=== PATIENT | male | born 1955 | race Caucasian/White ===

== ENCOUNTER 2019-06-27 13:52 | Inpatient (IN) | payer MEDICARE, MEDICAID ==
[~2019-06-27] VITALS: Ht 172.7 cm; Wt 69.9 kg
[~2019-06-27 13:52] MED LIST: AMLO5TAB4 PO; ATEN-177 PO; FOLI0.8T23 PO; INSU100I7 SQ; SEVE800T8 PO
[2019-06-27 14:47] LABS: CHLORIDE 97 mEq/L (98-107)
[2019-06-27 14:48] LABS: BASOPHILS % 1.1 % (0.0-2.0); EOSINOPHILS % 2.1 % (0.0-5.0); HEMATOCRIT. 32.9 % (42.0-52.0); HEMOGLOBIN. 11.1 g/dL (14.0-18.0); LYMPHOCYTES % 22.9 % (20.0-50.0); MEAN CORPUSCULAR HEMOGLOBIN 30.1 pg (28.0-32.0); MEAN CORPUSCULAR VOLUME 89.1 fL (80.0-94.0); MEAN PLATELET VOLUME 7.1 fl (7.4-10.4); MONOCYTES % 7.3 % (2.0-8.0); NEUTROPHILS % 66.6 % (40.0-76.0); PLATELET 268 x1000/uL (130-400); RED BLOOD CELL COUNT 3.69 mill/uL (4.7-6.1); RED CELL DISTRIBUTION WIDTH 14.9 % (11.6-14.6)
[2019-06-27 14:57] LABS: BETA HYDROXYBUTYRATE 0.3 mMol/L (0.0-0.3)
[2019-06-27] MEDS ORDERED: ACETAMINOPHEN 650MG/20.3ML UDC PO PRN (17:15)
[2019-06-27] MEDS ORDERED: ACETAMINOPHEN 325MG TABLET PO PRN (18:30)
[2019-06-27] MEDS ORDERED: ONDANSETRON HCL 4MG/2ML INJ IV PRN (18:30)
[2019-06-27] MEDS ORDERED: LEVOFLOXACIN 500MG PREMIX 100 ML IV SCH (19:00)
[2019-06-27] MEDS ORDERED: TRAZODONE HCL 50MG TABLET PO SCH (21:00)
[2019-06-27] MEDS: AMLODIPINE 5MG TABLET PO SCH (21:14)
[2019-06-28] MEDS: HYDROCODONE/ACETAMINOPHEN 5/325MG TABLET PO PRN ×2 (03:39→08:48)
[2019-06-28 05:09] LABS: CHLORIDE 95 mEq/L (98-107)
[2019-06-28 06:06] LABS: BASOPHILS % 1.2 % (0.0-2.0); EOSINOPHILS % 2.5 % (0.0-5.0); HEMATOCRIT. 30.3 % (42.0-52.0); HEMOGLOBIN. 10.5 g/dL (14.0-18.0); LYMPHOCYTES % 26.4 % (20.0-50.0); MEAN CORPUSCULAR HEMOGLOBIN 30.4 pg (28.0-32.0); MEAN CORPUSCULAR VOLUME 88.1 fL (80.0-94.0); MEAN PLATELET VOLUME 6.8 fl (7.4-10.4); MONOCYTES % 8.5 % (2.0-8.0); NEUTROPHILS % 61.4 % (40.0-76.0); PLATELET 238 x1000/uL (130-400); RED BLOOD CELL COUNT 3.44 mill/uL (4.7-6.1); RED CELL DISTRIBUTION WIDTH 14.8 % (11.6-14.6)
[2019-06-28 06:30] VITALS: BP 154/84
[2019-06-28 07:30] VITALS: BP 164/65
[2019-06-28 08:00] VITALS: BP 164/55
[2019-06-28] MEDS: AMLODIPINE 5MG TABLET PO SCH (08:47)
[2019-06-28] MEDS ORDERED: ASPIRIN 81MG TABLET PO SCH (09:00)
[2019-06-28] MEDS ORDERED: ENOXAPARIN 30MG/0.3ML SYR SUBCUT SCH (09:00)
[2019-06-28 12:00] VITALS: BP 135/70
[2019-06-28 15:39] VITALS: BP 157/84
[2019-06-28 16:00] VITALS: BP 153/84
[2019-06-28] MEDS ORDERED: LEVOFLOXACIN 500MG PREMIX 100 ML IV SCH (20:00)
[2019-06-29] MEDS ORDERED: LEVOFLOXACIN 250MG PREMIX 50 ML IV SCH (11:00)
== END 2019-06-28 18:23 | disposition home or self-care (01) | DRG 637 ==
LOC: ER 14:05 → EDBEDREQTM 16:18 → EDBEDREQ 16:18 → ENRESERV 06-28 05:11 → 6WST 06-28 06:16 → UNDODISIN 06-28 17:05
PROVIDERS: ADMIT Internal Medicine; ATTEND Internal Medicine
DX: E11.649 Type 2 diabetes mellitus with hypoglycemia without coma (principal); G93.41 Metabolic encephalopathy; I13.2 Hypertensive heart and chronic kidney disease with heart failure and with stage 5 chronic kidney disease, or end stage renal disease; E87.1 Hypo-osmolality and hyponatremia; E44.1 Mild protein-calorie malnutrition; E87.3 Alkalosis; I43 Cardiomyopathy in diseases classified elsewhere; E11.22 Type 2 diabetes mellitus with diabetic chronic kidney disease; I25.10 Atherosclerotic heart disease of native coronary artery without angina pectoris; E87.8 Other disorders of electrolyte and fluid balance, not elsewhere classified; D63.1 Anemia in chronic kidney disease; I50.9 Heart failure, unspecified; N18.6 End stage renal disease; E86.0 Dehydration; B99.9 Unspecified infectious disease; Z68.23 Body mass index [BMI] 23.0-23.9, adult; Z99.2 Dependence on renal dialysis; Z91.19 Patient's noncompliance with other medical treatment and regimen; Z95.1 Presence of aortocoronary bypass graft; Z89.511 Acquired absence of right leg below knee; Z89.512 Acquired absence of left leg below knee
CPT/HCPCS: 36415; 71045; 80048; 80053; 80061; 82010; 82962; 83036; 83605; 83735; 83880; 84145; 84443; 84484; 85025; 85651; 93005; 96365; 99285; J1650; J1956

== ENCOUNTER 2019-07-30 07:02 | Inpatient (IN) | payer MEDICARE, MEDICAID ==
[~2019-07-30] VITALS: Ht 165.1 cm; Wt 75.3 kg
[~2019-07-30 07:02] MED LIST changes: -INSU100I7 SQ
[2019-07-30 08:02] LABS: BASOPHILS % 0.8 % (0.0-2.0); EOSINOPHILS % 1.6 % (0.0-5.0); HEMATOCRIT. 36.3 % (42.0-52.0); HEMOGLOBIN. 12.2 g/dL (14.0-18.0); LYMPHOCYTES % 20.1 % (20.0-50.0); MEAN CORPUSCULAR HEMOGLOBIN 29.6 pg (28.0-32.0); MEAN CORPUSCULAR VOLUME 88.4 fL (80.0-94.0); MEAN PLATELET VOLUME 6.7 fl (7.4-10.4); NEUTROPHILS % 70.5 % (40.0-76.0); PLATELET 152 x1000/uL (130-400); RED BLOOD CELL COUNT 4.11 mill/uL (4.7-6.1); RED CELL DISTRIBUTION WIDTH 15.8 % (11.6-14.6)
[2019-07-30 08:08] LABS: CHLORIDE 96 mEq/L (98-107)
[2019-07-30 08:09] LABS: PROTHROMBIN TIME 10.7 sec (9.6-11.0)
[2019-07-30] MEDS ORDERED: DEXTROSE 50% WATER 50ML SYRINGE IV ONE ×2 (08:57→09:00)
[2019-07-30] MEDS ORDERED: ALBUTEROL 6.7GM HFA INHALER ORI ONE (09:00)
[2019-07-30] MEDS ORDERED: PIPERACILLIN/TAZ 3.375G PREMIX 50 ML IV ONE (11:30)
[2019-07-30] MEDS ORDERED: VANCOMYCIN 1 G PREMIX 200 ML IV ONE (11:30)
[2019-07-30 13:00] VITALS: BP 168/88
[2019-07-30] MEDS ORDERED: ACETAMINOPHEN 325MG TABLET PO PRN (13:30)
[2019-07-30] MEDS ORDERED: IPRATROPIUM/ALBUTEROL 0.5-3(2.5)MG/3ML NEB HHN PRN (13:30)
[2019-07-30] MEDS ORDERED: PIPERACILLIN/TAZOBACTAM 3.375 G in DEXT 5% WATER 100 ML IV SCH (13:30)
[2019-07-30] MEDS ORDERED: LABETALOL 5MG/ML SYR 20 MG/4 ML SYRINGE IV NR (13:30)
[2019-07-30] MEDS ORDERED: ONDANSETRON HCL 4MG/2ML INJ IV PRN (13:30)
[2019-07-30 13:48] VITALS: BP 168/86
[2019-07-30] MEDS ORDERED: CLONIDINE 0.1MG TABLET PO PRN (14:45)
[2019-07-30] MEDS: ENOXAPARIN 30MG/0.3ML SYR SUBCUT SCH (15:37)
[2019-07-30 16:29] VITALS: BP 172/130
[2019-07-30] MEDS ORDERED: HYDRALAZINE 20MG/ML VIAL IV NR (16:30)
[2019-07-30] MEDS ORDERED: LEVETIRACETAM 500 MG in SODIUM CHLORIDE 0.9% 100 ML IV SCH (16:30)
[2019-07-30] MEDS: LOSARTAN POTASSIUM 50 MG TABLET PO SCH (16:45)
[2019-07-30] MEDS ORDERED: LORAZEPAM 2MG/ML CPJ IV PRN (17:15)
[2019-07-30] MEDS: PIPERACILLIN/TAZOBACTAM 2.25 G in DEXTROSE 5% WATER 50 ML IV SCH (17:42)
[2019-07-30] MEDS: ENALAPRIL 2.5MG/2ML VIAL 2ML IV SCH ×2 (17:43→23:56)
[2019-07-30] MEDS ORDERED: DEXTROSE 50% WATER 50ML SYRINGE IV PRN (19:30)
[2019-07-30 20:08] VITALS: BP 153/97
[2019-07-30] MEDS: LEVETIRACETAM 500MG PREMIX 100 ML IV SCH (20:22)
[2019-07-30] MEDS: BLOOD SUGAR DIAGNOSTIC STRIP TEST SCH (20:31)
[2019-07-30] MEDS: AMLODIPINE 5MG TABLET PO SCH (20:31)
[2019-07-31] VITALS (7 sets, daily range): BP systolic 106–179; BP diastolic 56–105
[2019-07-31] MEDS: PIPERACILLIN/TAZOBACTAM 2.25 G in DEXTROSE 5% WATER 50 ML IV SCH ×2 (04:29→19:42)
[2019-07-31] MEDS: ENALAPRIL 2.5MG/2ML VIAL 2ML IV SCH ×4 (05:32→23:29)
[2019-07-31] MEDS: BLOOD SUGAR DIAGNOSTIC STRIP TEST SCH ×4 (05:32→20:56)
[2019-07-31] MEDS: AMLODIPINE 5MG TABLET PO SCH ×2 (09:00→21:00)
[2019-07-31] MEDS: LOSARTAN POTASSIUM 50 MG TABLET PO SCH (09:00)
[2019-07-31] MEDS: LEVETIRACETAM 500MG PREMIX 100 ML IV SCH ×2 (09:51→22:05)
[2019-07-31 11:56] LABS: HEMATOCRIT. 34.5 % (42.0-52.0); HEMOGLOBIN. 11.5 g/dL (14.0-18.0); MEAN CORPUSCULAR HEMOGLOBIN 29.2 pg (28.0-32.0); MEAN CORPUSCULAR VOLUME 87.9 fL (80.0-94.0); MEAN PLATELET VOLUME 7.5 fl (7.4-10.4); PLATELET 152 x1000/uL (130-400); RED BLOOD CELL COUNT 3.93 mill/uL (4.7-6.1); RED CELL DISTRIBUTION WIDTH 16.2 % (11.6-14.6)
[2019-07-31] MEDS: ATENOLOL 50 MG TABLET PO SCH (12:00)
[2019-07-31 14:24] LABS: PLATELET ESTIMATE NORMAL
[2019-07-31] MEDS: ENOXAPARIN 30MG/0.3ML SYR SUBCUT SCH (17:50)
[2019-07-31] MEDS: ATORVASTATIN CALCIUM 20MG TABLET PO SCH (21:39)
[2019-08-01] MEDS: ENALAPRIL 2.5MG/2ML VIAL 2ML IV SCH ×4 (00:16→17:50)
[2019-08-01 04:22] VITALS: BP 120/70
[2019-08-01 04:50] VITALS: BP 169/100
[2019-08-01] MEDS: BLOOD SUGAR DIAGNOSTIC STRIP TEST SCH ×4 (05:31→21:07)
[2019-08-01] MEDS: PIPERACILLIN/TAZOBACTAM 2.25 G in DEXTROSE 5% WATER 50 ML IV SCH ×2 (05:38→17:50)
[2019-08-01] MEDS: HYDRALAZINE 20MG/ML VIAL IV PRN ×2 (08:43→21:12)
[2019-08-01] MEDS: CLOPIDOGREL 75MG TABLET PO SCH (08:43)
[2019-08-01] MEDS: LOSARTAN POTASSIUM 50 MG TABLET PO SCH (08:43)
[2019-08-01] MEDS: FOLIC ACID/VITAMIN B COMP W-C TABLET PO SCH (08:43)
[2019-08-01] MEDS: AMLODIPINE 5MG TABLET PO SCH ×2 (08:44→21:07)
[2019-08-01] MEDS: ATENOLOL 50 MG TABLET PO SCH (08:44)
[2019-08-01] MEDS: LEVETIRACETAM 500MG PREMIX 100 ML IV SCH ×2 (08:45→21:06)
[2019-08-01 12:00] VITALS: BP 159/89
[2019-08-01] MEDS: ENOXAPARIN 30MG/0.3ML SYR SUBCUT SCH (15:18)
[2019-08-01 16:00] VITALS: BP 164/85
[2019-08-01] MEDS ORDERED: DEXTROSE 50% WATER 50ML SYRINGE IV PRN (19:15)
[2019-08-01 20:00] VITALS: BP 201/46
[2019-08-01] MEDS: ATORVASTATIN CALCIUM 20MG TABLET PO SCH (21:07)
[2019-08-01] MEDS: INSULIN LISPRO 100 UNITS/ML SUBCUT SCH (21:13)
[2019-08-02] VITALS: BP 161/43
[2019-08-02] MEDS: ENALAPRIL 2.5MG/2ML VIAL 2ML IV SCH ×4 (00:37→17:42)
[2019-08-02 03:00] VITALS: BP 148/43
[2019-08-02 04:00] VITALS: BP 135/25
[2019-08-02] MEDS: PIPERACILLIN/TAZOBACTAM 2.25 G in DEXTROSE 5% WATER 50 ML IV SCH ×2 (06:12→18:09)
[2019-08-02 08:00] VITALS: BP 180/68
[2019-08-02] MEDS: BLOOD SUGAR DIAGNOSTIC STRIP TEST SCH ×3 (08:00→21:00)
[2019-08-02] MEDS: LEVETIRACETAM 500MG PREMIX 100 ML IV SCH ×2 (10:06→22:37)
[2019-08-02] MEDS: CLOPIDOGREL 75MG TABLET PO SCH (10:06)
[2019-08-02] MEDS: FOLIC ACID/VITAMIN B COMP W-C TABLET PO SCH (10:07)
[2019-08-02] MEDS: AMLODIPINE 5MG TABLET PO SCH ×2 (10:07→22:37)
[2019-08-02] MEDS: ATENOLOL 50 MG TABLET PO SCH (10:07)
[2019-08-02] MEDS: LOSARTAN POTASSIUM 50 MG TABLET PO SCH (10:07)
[2019-08-02] MEDS: INSULIN LISPRO 100 UNITS/ML SUBCUT SCH ×4 (10:09→21:00)
[2019-08-02 12:00] VITALS: BP 178/77
[2019-08-02] MEDS: ENOXAPARIN 30MG/0.3ML SYR SUBCUT SCH (15:37)
[2019-08-02] MEDS: HYDRALAZINE 20MG/ML VIAL IV PRN (15:38)
[2019-08-02 17:43] VITALS: BP 140/64
[2019-08-02] MEDS: ATORVASTATIN CALCIUM 20MG TABLET PO SCH (22:37)
[2019-08-02 23:17] LABS: BASOPHILS % 0.4 % (0.0-2.0); EOSINOPHILS % 0.3 % (0.0-5.0); HEMATOCRIT. 30.6 % (42.0-52.0); LYMPHOCYTES % 10.4 % (20.0-50.0); MEAN CORPUSCULAR HEMOGLOBIN 29.6 pg (28.0-32.0); MEAN CORPUSCULAR VOLUME 90.4 fL (80.0-94.0); MEAN PLATELET VOLUME 8.4 fl (7.4-10.4); MONOCYTES % 4.3 % (2.0-8.0); NEUTROPHILS % 84.6 % (40.0-76.0); PLATELET 164 x1000/uL (130-400); RED BLOOD CELL COUNT 3.39 mill/uL (4.7-6.1); RED CELL DISTRIBUTION WIDTH 15.9 % (11.6-14.6)
[2019-08-03] VITALS (15 sets, daily range): BP systolic 113–263; BP diastolic 34–209
[2019-08-03] MEDS: PIPERACILLIN/TAZOBACTAM 2.25 G in DEXTROSE 5% WATER 50 ML IV SCH ×2 (05:24→19:19)
[2019-08-03] MEDS: ENALAPRIL 2.5MG/2ML VIAL 2ML IV SCH ×4 (05:52→18:00)
[2019-08-03] MEDS: INSULIN LISPRO 100 UNITS/ML SUBCUT SCH ×4 (06:29→21:58)
[2019-08-03] MEDS: BLOOD SUGAR DIAGNOSTIC STRIP TEST SCH ×4 (06:29→21:58)
[2019-08-03] MEDS: FOLIC ACID/VITAMIN B COMP W-C TABLET PO SCH (09:06)
[2019-08-03] MEDS: CLOPIDOGREL 75MG TABLET PO SCH (09:07)
[2019-08-03] MEDS: ATENOLOL 50 MG TABLET PO SCH (09:07)
[2019-08-03] MEDS: AMLODIPINE 5MG TABLET PO SCH ×2 (09:07→21:56)
[2019-08-03] MEDS: LOSARTAN POTASSIUM 50 MG TABLET PO SCH (09:07)
[2019-08-03] MEDS: LEVETIRACETAM 500MG PREMIX 100 ML IV SCH ×2 (09:07→21:57)
[2019-08-03] MEDS: ENOXAPARIN 30MG/0.3ML SYR SUBCUT SCH (13:32)
[2019-08-03 13:48] LABS: HEMOGLOBIN 9.5 g/dL (14.0-18.0); MEAN CORPUSCULAR HEMOGLOBIN 29.4 pg (28.0-32.0); MEAN CORPUSCULAR VOLUME 89.5 fL (80.0-94.0); PLATELET 176 x1000/uL (130-400); RED BLOOD CELL COUNT 3.24 mill/uL (4.7-6.1); RED CELL DISTRIBUTION WIDTH 15.6 % (11.6-14.6)
[2019-08-03] MEDS ORDERED: SEVELAMER CARBONATE 800 MG TABLET PO SCH (17:50)
[2019-08-03 18:07] LABS: BG BASE EXCESS 6.1 mmol/L (-2.0-2.0); BG CARBOXYHEMOGLOBIN 0.4 % (0.5-1.5); BG DEOXYHEMOGLOBIN 6.8 % (0.0-5.0); BG FRACTION INSPIRED OXYGEN 21; BG HCO3 ACT 30.1 mmol/L (22.0-26.0); BG METHEMOGLOBIN 0.3 % (0.0-1.5); BG OXYGEN SATURATION 93.2 % (92.0-98.5); BG OXYHEMOGLOBIN 92.5 % (94.0-97.0); BG PCO2 41.5 mmHg (35.0-45.0); BG PH 7.479 (7.350-7.450); BG PO2 70.3 mmHg (75.0-100.0); BG SAMPLE SITE RIGHT RADIAL; BG TOTAL HEMOGLOBIN 8.6 g/dL (12.0-18.0); BG VENT MODE ROOM AIR
[2019-08-03 19:21] LABS: HEMATOCRIT 25.1 % (42.0-52.0); HEMOGLOBIN 8.2 g/dL (14.0-18.0); MEAN CORPUSCULAR HEMOGLOBIN 29.5 pg (28.0-32.0); MEAN CORPUSCULAR VOLUME 89.9 fL (80.0-94.0); PLATELET 185 x1000/uL (130-400); RED BLOOD CELL COUNT 2.79 mill/uL (4.7-6.1); RED CELL DISTRIBUTION WIDTH 15.5 % (11.6-14.6)
[2019-08-03] MEDS: ATORVASTATIN CALCIUM 20MG TABLET PO SCH (21:55)
[2019-08-03] MEDS: PANTOPRAZOLE 80 MG in SODIUM CHLORIDE 0.9% 100 ML IV SCH (23:22)
[2019-08-04] VITALS (66 sets, daily range): BP systolic 84–207; BP diastolic 33–108
[2019-08-04] LABS: BG CARBOXYHEMOGLOBIN 0.6 % (0.5-1.5); BG DEOXYHEMOGLOBIN 2.5 % (0.0-5.0); BG FRACTION INSPIRED OXYGEN 28; BG HCO3 ACT 23.7 mmol/L (22.0-26.0); BG METHEMOGLOBIN 0.3 % (0.0-1.5); BG OXYGEN SATURATION 97.5 % (92.0-98.5); BG OXYHEMOGLOBIN 96.6 % (94.0-97.0); BG PCO2 29.8 mmHg (35.0-45.0); BG PH 7.518 (7.350-7.450); BG SAMPLE SITE RIGHT RADIAL; BG TOTAL HEMOGLOBIN 7.6 g/dL (12.0-18.0); BG VENT MODE NASAL CANNULA
[2019-08-04 01:53] LABS: BASOPHILS % 0.4 % (0.0-2.0); EOSINOPHILS % 0.2 % (0.0-5.0); HEMATOCRIT. 22.9 % (42.0-52.0); HEMOGLOBIN. 7.3 g/dL (14.0-18.0); LYMPHOCYTES % 18.7 % (20.0-50.0); MEAN CORPUSCULAR HEMOGLOBIN 29.2 pg (28.0-32.0); MEAN CORPUSCULAR VOLUME 91.1 fL (80.0-94.0); MEAN PLATELET VOLUME 8.9 fl (7.4-10.4); MONOCYTES % 4.9 % (2.0-8.0); NEUTROPHILS % 75.8 % (40.0-76.0); PLATELET 223 x1000/uL (130-400); RED BLOOD CELL COUNT 2.51 mill/uL (4.7-6.1); RED CELL DISTRIBUTION WIDTH 16.1 % (11.6-14.6)
[2019-08-04 02:00] LABS: CHLORIDE 100 mEq/L (98-107)
[2019-08-04 02:06] LABS: INR 1.1; PARTIAL THROMBOPLASTIN TIME 30.5 sec (23.4-31.0); PROTHROMBIN TIME 12.3 sec (9.6-11.0)
[2019-08-04] MEDS ORDERED: IOHEXOL-350 100 ML BOTTLE ONE (03:44)
[2019-08-04] MEDS ORDERED: NOREPINEPHRINE 32 MG in DEXT 5% WATER 468 ML IV PRN (04:30)
[2019-08-04 04:59] LABS: BG BASE EXCESS -9.4 mmol/L (-2.0-2.0); BG CARBOXYHEMOGLOBIN 0.2 % (0.5-1.5); BG DEOXYHEMOGLOBIN 0.6 % (0.0-5.0); BG FRACTION INSPIRED OXYGEN 100; BG HCO3 ACT 17.2 mmol/L (22.0-26.0); BG METHEMOGLOBIN 0.3 % (0.0-1.5); BG OXYGEN SATURATION 99.4 % (92.0-98.5); BG OXYHEMOGLOBIN 98.9 % (94.0-97.0); BG PCO2 40.2 mmHg (35.0-45.0); BG PH 7.249 (7.350-7.450); BG PO2 295.5 mmHg (75.0-100.0); BG SAMPLE SITE RIGHT RADIAL; BG TIDAL VOLUME(mL) 500 mL; BG TOTAL HEMOGLOBIN 8.7 g/dL (12.0-18.0); BG VENT MODE VENT - A/C; BG VENT RATE 12 set
[2019-08-04] MEDS: ENALAPRIL 2.5MG/2ML VIAL 2ML IV SCH ×4 (05:27→17:13)
[2019-08-04] MEDS ORDERED: SODIUM BICARBONATE 8.4% 1 MEQ/ML 50ML SYR IV SCH (05:30)
[2019-08-04] MEDS: PIPERACILLIN/TAZOBACTAM 2.25 G in DEXTROSE 5% WATER 50 ML IV SCH ×2 (05:45→18:00)
[2019-08-04 07:06] LABS: HEMATOCRIT. 26.7 % (42.0-52.0); HEMOGLOBIN. 8.6 g/dL (14.0-18.0); MEAN CORPUSCULAR HEMOGLOBIN 28.9 pg (28.0-32.0); MEAN CORPUSCULAR VOLUME 89.5 fL (80.0-94.0); MEAN PLATELET VOLUME 9.3 fl (7.4-10.4); PLATELET 188 x1000/uL (130-400); RED BLOOD CELL COUNT 2.98 mill/uL (4.7-6.1)
[2019-08-04 07:15] LABS: CHLORIDE 102 mEq/L (98-107)
[2019-08-04 07:36] LABS: CREATINE KINASE 141 IU/L (39-308); CREATINE KINASE MB FRACTION 1.7 ng/mL (0.5-3.6)
[2019-08-04 07:53] LABS: BG CARBOXYHEMOGLOBIN 0.3 % (0.5-1.5); BG DEOXYHEMOGLOBIN 1.5 % (0.0-5.0); BG FRACTION INSPIRED OXYGEN 70; BG HCO3 ACT 17.1 mmol/L (22.0-26.0); BG METHEMOGLOBIN 0.3 % (0.0-1.5); BG OXYGEN SATURATION 98.5 % (92.0-98.5); BG OXYHEMOGLOBIN 97.9 % (94.0-97.0); BG PCO2 22.7 mmHg (35.0-45.0); BG PH 7.494 (7.350-7.450); BG PO2 147.8 mmHg (75.0-100.0); BG SAMPLE SITE RIGHT BRACHIAL; BG TIDAL VOLUME(mL) 500 mL; BG TOTAL HEMOGLOBIN 9.1 g/dL (12.0-18.0); BG VENT MODE VENT - A/C; BG VENT RATE 20 set
[2019-08-04] MEDS ORDERED: ALBUMIN HUMAN 12.5GM/50ML (25%) IV PRN (08:15)
[2019-08-04] MEDS ORDERED: LIDOCAINE HCL 1% 20ML VIAL (Pyxis) INJ ONE ×2 (08:17→10:49)
[2019-08-04] MEDS: CALCIUM ACETATE 667MG CAPSULE PO SCH ×3 (08:20→18:20)
[2019-08-04] MEDS: LOSARTAN POTASSIUM 50 MG TABLET PO SCH (08:23)
[2019-08-04] MEDS: ATENOLOL 50 MG TABLET PO SCH (08:23)
[2019-08-04] MEDS: AMLODIPINE 5MG TABLET PO SCH ×2 (08:23→21:00)
[2019-08-04] MEDS: BLOOD SUGAR DIAGNOSTIC STRIP TEST SCH ×4 (08:36→21:24)
[2019-08-04] MEDS: LORAZEPAM 2MG/ML CPJ IM PRN ×2 (09:16→22:38)
[2019-08-04] MEDS: INSULIN LISPRO 100 UNITS/ML SUBCUT SCH ×4 (09:28→21:25)
[2019-08-04] MEDS: PANTOPRAZOLE 80 MG in SODIUM CHLORIDE 0.9% 100 ML IV SCH ×3 (10:00→21:24)
[2019-08-04] MEDS ORDERED: PANTOPRAZOLE SODIUM 40 MG/VIAL IV ONE (10:23)
[2019-08-04] MEDS: LEVETIRACETAM 500MG PREMIX 100 ML IV SCH ×2 (11:22→21:20)
[2019-08-04] MEDS: FOLIC ACID/VITAMIN B COMP W-C TABLET PO SCH (11:29)
[2019-08-04 12:36] LABS: NUCLEATED RED BLOOD CELLS 2 /100 WBC; PLATELET ESTIMATE NORMAL
[2019-08-04] MEDS ORDERED: HEPARIN 100 UNITS/1 ML VIAL IVF PRN (12:45)
[2019-08-04 13:07] LABS: HEPATITIS B SURFACE ANTIGEN NEGATIVE
[2019-08-04 13:30] LABS: HEMATOCRIT 23.3 % (42.0-52.0); HEMOGLOBIN 7.7 g/dL (14.0-18.0)
[2019-08-04 13:37] LABS: HEPATITIS A AB IGM NEGATIVE (NEGATIVE)
[2019-08-04] MEDS: ATENOLOL 25MG TABLET PO SCH (17:00)
[2019-08-04] MEDS ORDERED: ALBUMIN HUMAN 12.5GM/50ML (25%) IV NR (18:30)
[2019-08-04 20:33] LABS: HEMATOCRIT 32.6 % (42.0-52.0); HEMOGLOBIN 11.1 g/dL (14.0-18.0)
[2019-08-04] MEDS ORDERED: EPOETIN ALFA 4000UNITS/ML VIAL SUBCUT SCH (21:00)
[2019-08-05] VITALS (41 sets, daily range): BP systolic 110–173; BP diastolic 50–87
[2019-08-05] MEDS: ENALAPRIL 2.5MG/2ML VIAL 2ML IV SCH ×5 (00:30→23:57)
[2019-08-05 01:16] LABS: HEMATOCRIT 27.5 % (42.0-52.0); HEMOGLOBIN 9.5 g/dL (14.0-18.0)
[2019-08-05 06:16] LABS: BASOPHILS % 0.4 % (0.0-2.0); EOSINOPHILS % 0.1 % (0.0-5.0); HEMATOCRIT. 27.6 % (42.0-52.0); HEMOGLOBIN. 9.5 g/dL (14.0-18.0); LYMPHOCYTES % 15.3 % (20.0-50.0); MEAN CORPUSCULAR HEMOGLOBIN 29.6 pg (28.0-32.0); MEAN CORPUSCULAR VOLUME 86.4 fL (80.0-94.0); MEAN PLATELET VOLUME 8.7 fl (7.4-10.4); NEUTROPHILS % 79.2 % (40.0-76.0); PLATELET 138 x1000/uL (130-400); RED CELL DISTRIBUTION WIDTH 16.2 % (11.6-14.6)
[2019-08-05] MEDS: BLOOD SUGAR DIAGNOSTIC STRIP TEST SCH ×4 (08:12→21:00)
[2019-08-05] MEDS: CALCIUM ACETATE 667MG CAPSULE PO SCH ×3 (08:20→17:04)
[2019-08-05] MEDS: INSULIN LISPRO 100 UNITS/ML SUBCUT SCH ×4 (08:20→21:00)
[2019-08-05] MEDS: LEVETIRACETAM 500MG PREMIX 100 ML IV SCH ×2 (08:38→20:50)
[2019-08-05 08:56] LABS: BG BASE EXCESS -3.5 mmol/L (-2.0-2.0); BG CARBOXYHEMOGLOBIN 0.2 % (0.5-1.5); BG DEOXYHEMOGLOBIN 1.6 % (0.0-5.0); BG FRACTION INSPIRED OXYGEN 60; BG HCO3 ACT 18.9 mmol/L (22.0-26.0); BG METHEMOGLOBIN 0.7 % (0.0-1.5); BG OXYGEN SATURATION 98.4 % (92.0-98.5); BG OXYHEMOGLOBIN 97.5 % (94.0-97.0); BG PCO2 25.8 mmHg (35.0-45.0); BG PH 7.483 (7.350-7.450); BG PO2 190.5 mmHg (75.0-100.0); BG SAMPLE SITE RIGHT RADIAL; BG TIDAL VOLUME(mL) 450 mL; BG TOTAL HEMOGLOBIN 9.9 g/dL (12.0-18.0); BG VENT MODE VENT - A/C; BG VENT RATE 20 set
[2019-08-05] MEDS: LOSARTAN POTASSIUM 50 MG TABLET PO SCH (09:00)
[2019-08-05] MEDS: FOLIC ACID/VITAMIN B COMP W-C TABLET PO SCH (09:00)
[2019-08-05] MEDS: ATENOLOL 25MG TABLET PO SCH (09:00)
[2019-08-05] MEDS: AMLODIPINE 5MG TABLET PO SCH ×3 (09:00→21:16)
[2019-08-05] MEDS: PANTOPRAZOLE 80 MG in SODIUM CHLORIDE 0.9% 100 ML IV SCH (10:34)
[2019-08-05] MEDS: SUCRALFATE 1 G/10 ML UDC PO SCH ×3 (11:19→23:55)
[2019-08-05] MEDS ORDERED: MIDAZOLAM HCL 5 MG/5 ML VIAL IV PRN (14:22)
[2019-08-05] MEDS ORDERED: FENTANYL CITRATE/PF 50MCG/ML 2ML VIAL IV PRN (14:22)
[2019-08-05] MEDS ORDERED: MIDAZOLAM HCL 5 MG/5 ML VIAL ONE (14:22)
[2019-08-05] MEDS ORDERED: FENTANYL CITRATE/PF 50MCG/ML 2ML VIAL ONE (14:22)
[2019-08-05] MEDS: PANTOPRAZOLE SODIUM 40 MG/VIAL IV SCH (17:07)
[2019-08-05] MEDS ORDERED: DEXT 5%/0.45% NACL 1000ML 1,000 ML IV SCH (18:00)
[2019-08-05] MEDS: LORAZEPAM 2MG/ML CPJ IM PRN (20:02)
[2019-08-05 20:07] LABS: HEMATOCRIT 27.7 % (42.0-52.0); HEMOGLOBIN 9.4 g/dL (14.0-18.0)
[2019-08-05] MEDS: HYDRALAZINE 20MG/ML VIAL IV PRN (21:54)
[2019-08-06] VITALS (53 sets, daily range): BP systolic 119–176; BP diastolic 59–82
[2019-08-06] MEDS: PANTOPRAZOLE SODIUM 40 MG/VIAL IV SCH (05:28)
[2019-08-06] MEDS: SUCRALFATE 1 G/10 ML UDC PO SCH ×2 (05:28→11:24)
[2019-08-06] MEDS: AMLODIPINE 5MG TABLET PO SCH ×2 (05:29→14:00)
[2019-08-06] MEDS: ENALAPRIL 2.5MG/2ML VIAL 2ML IV SCH ×2 (05:29→12:00)
[2019-08-06 05:46] LABS: HEMATOCRIT. 28.6 % (42.0-52.0); HEMOGLOBIN. 9.9 g/dL (14.0-18.0); MEAN CORPUSCULAR HEMOGLOBIN 30.1 pg (28.0-32.0); MEAN CORPUSCULAR VOLUME 86.6 fL (80.0-94.0); MEAN PLATELET VOLUME 8.1 fl (7.4-10.4); PLATELET 130 x1000/uL (130-400); RED BLOOD CELL COUNT 3.31 mill/uL (4.7-6.1); RED CELL DISTRIBUTION WIDTH 16.5 % (11.6-14.6)
[2019-08-06 07:17] LABS: BG BASE EXCESS -3.9 mmol/L (-2.0-2.0); BG CARBOXYHEMOGLOBIN 0.3 % (0.5-1.5); BG DEOXYHEMOGLOBIN 3.1 % (0.0-5.0); BG FRACTION INSPIRED OXYGEN 40; BG HCO3 ACT 19.1 mmol/L (22.0-26.0); BG METHEMOGLOBIN 0.4 % (0.0-1.5); BG OXYGEN SATURATION 96.9 % (92.0-98.5); BG OXYHEMOGLOBIN 96.2 % (94.0-97.0); BG PCO2 27.8 mmHg (35.0-45.0); BG PH 7.455 (7.350-7.450); BG PO2 103.4 mmHg (75.0-100.0); BG SAMPLE SITE RIGHT RADIAL; BG TIDAL VOLUME(mL) 450 mL; BG TOTAL HEMOGLOBIN 9.9 g/dL (12.0-18.0); BG VENT MODE VENT - A/C; BG VENT RATE 20 set
[2019-08-06] MEDS: BLOOD SUGAR DIAGNOSTIC STRIP TEST SCH ×2 (08:03→13:14)
[2019-08-06] MEDS: INSULIN LISPRO 100 UNITS/ML SUBCUT SCH ×2 (08:20→13:14)
[2019-08-06] MEDS: CALCIUM ACETATE 667MG CAPSULE PO SCH (08:20)
[2019-08-06] MEDS ORDERED: ATENOLOL 25MG TABLET PO SCH (09:00)
[2019-08-06] MEDS: FOLIC ACID/VITAMIN B COMP W-C TABLET PO SCH (09:00)
[2019-08-06] MEDS: LOSARTAN POTASSIUM 50 MG TABLET PO SCH (09:00)
[2019-08-06] MEDS: HYDRALAZINE 20MG/ML VIAL IV PRN (10:16)
[2019-08-06] MEDS: LEVETIRACETAM 500MG PREMIX 100 ML IV SCH (11:26)
[2019-08-06] MEDS ORDERED: HEPARIN SODIUM 1,000 UNIT/1ML VIAL IV NR (12:45)
[2019-08-06 13:55] LABS: PLATELET ESTIMATE NORMAL
[2019-08-06] MEDS ORDERED: LORAZEPAM 2MG/ML CPJ IM PRN (16:00)
[2019-08-06] MEDS ORDERED: MORPHINE SULFATE 2 MG/ML CPJ (NOT FOR IM USE) IV PRN (16:00)
[2019-08-07] VITALS (32 sets, daily range): BP systolic 126–172; BP diastolic 63–95
[2019-08-08] VITALS: BP 107/61
[2019-08-08 04:00] VITALS: BP 91/55
[2019-08-08 08:00] VITALS: BP 82/53
== END 2019-08-08 12:00 | disposition expired | DRG 871 ==
LOC: ER 07:02 → 6WST 11:18 → EDBEDREQSVC 11:35 → EDBEDREQ 11:35 → ENRESERV 11:56 → 7WST 07-31 00:18 → 6WST 08-02 17:32 → CVICU 08-03 18:39 → 6EST 08-07 09:20
PROVIDERS: ADMIT Internal Medicine; ATTEND Internal Medicine
PROC: 5A1D70Z Performance of Urinary Filtration, Intermittent, Less than 6 Hours Per Day (ICD-10-PCS; 2019-07-30)
PROC: 5A1D70Z Performance of Urinary Filtration, Intermittent, Less than 6 Hours Per Day (ICD-10-PCS; 2019-07-31)
PROC: 5A1D70Z Performance of Urinary Filtration, Intermittent, Less than 6 Hours Per Day (ICD-10-PCS; 2019-08-02)
PROC: 5A1945Z Respiratory Ventilation, 24-96 Consecutive Hours (ICD-10-PCS; principal; 2019-08-04)
PROC: 30233N1 Transfusion of Nonautologous Red Blood Cells into Peripheral Vein, Percutaneous Approach (ICD-10-PCS; 2019-08-04)
PROC: 06HY33Z Insertion of Infusion Device into Lower Vein, Percutaneous Approach (ICD-10-PCS; 2019-08-04)
PROC: 06HY33Z Insertion of Infusion Device into Lower Vein, Percutaneous Approach (ICD-10-PCS; 2019-08-04)
PROC: B54BZZA Ultrasonography of Right Lower Extremity Veins, Guidance (ICD-10-PCS; 2019-08-04)
PROC: 5A1D70Z Performance of Urinary Filtration, Intermittent, Less than 6 Hours Per Day (ICD-10-PCS; 2019-08-04)
PROC: 0BH17EZ Insertion of Endotracheal Airway into Trachea, Via Natural or Artificial Opening (ICD-10-PCS; 2019-08-04)
PROC: 5A1D70Z Performance of Urinary Filtration, Intermittent, Less than 6 Hours Per Day (ICD-10-PCS; 2019-08-05)
PROC: 5A1D70Z Performance of Urinary Filtration, Intermittent, Less than 6 Hours Per Day (ICD-10-PCS; 2019-08-06)
PROC: 0DB68ZX Excision of Stomach, Via Natural or Artificial Opening Endoscopic, Diagnostic (ICD-10-PCS; 2019-08-06)
DX: A41.9 Sepsis, unspecified organism (principal); J18.9 Pneumonia, unspecified organism; N18.6 End stage renal disease; J96.01 Acute respiratory failure with hypoxia; K22.11 Ulcer of esophagus with bleeding; K26.4 Chronic or unspecified duodenal ulcer with hemorrhage; K25.4 Chronic or unspecified gastric ulcer with hemorrhage; I63.9 Cerebral infarction, unspecified; K29.61 Other gastritis with bleeding; E44.1 Mild protein-calorie malnutrition; E87.1 Hypo-osmolality and hyponatremia; I12.0 Hypertensive chronic kidney disease with stage 5 chronic kidney disease or end stage renal disease; J98.11 Atelectasis; D63.1 Anemia in chronic kidney disease; E78.5 Hyperlipidemia, unspecified; E87.5 Hyperkalemia; E87.70 Fluid overload, unspecified; E87.8 Other disorders of electrolyte and fluid balance, not elsewhere classified; E11.22 Type 2 diabetes mellitus with diabetic chronic kidney disease; I16.0 Hypertensive urgency; E11.649 Type 2 diabetes mellitus with hypoglycemia without coma; E83.39 Other disorders of phosphorus metabolism; G40.909 Epilepsy, unspecified, not intractable, without status epilepticus; E11.51 Type 2 diabetes mellitus with diabetic peripheral angiopathy without gangrene; D63.8 Anemia in other chronic diseases classified elsewhere; I25.10 Atherosclerotic heart disease of native coronary artery without angina pectoris; D50.0 Iron deficiency anemia secondary to blood loss (chronic); Z20.828 Contact with and (suspected) exposure to other viral communicable diseases; E86.1 Hypovolemia; H51.8 Other specified disorders of binocular movement; Z51.5 Encounter for palliative care; Z66 Do not resuscitate; E11.42 Type 2 diabetes mellitus with diabetic polyneuropathy; K29.80 Duodenitis without bleeding; R74.0 Nonspecific elevation of levels of transaminase and lactic acid dehydrogenase [LDH]; Z89.511 Acquired absence of right leg below knee; Z89.512 Acquired absence of left leg below knee; Z95.1 Presence of aortocoronary bypass graft; Z91.19 Patient's noncompliance with other medical treatment and regimen; Z99.2 Dependence on renal dialysis; Z68.27 Body mass index [BMI] 27.0-27.9, adult; Z88.8 Allergy status to other drugs, medicaments and biological substances; Z79.899 Other long term (current) drug therapy; Z87.19 Personal history of other diseases of the digestive system; Z95.2 Presence of prosthetic heart valve; Z79.4 Long term (current) use of insulin; Z03.818 Encounter for observation for suspected exposure to other biological agents ruled out
CPT/HCPCS: 36415; 36600; 70551; 71045; 76700; 76937; 78278; 80048; 80053; 80061; 80076; 82140; 82270; 82375; 82550; 82553; 82805; 82962; 83036; 84100; 84145; 84484; 85014; 85018; 85025; 85027; 85384; 86705; 86709; 86803; 86850; 86900; 86920; 87070; 87340; 87635; 88305; 88312; 88313; 93005; 93971; 94002; 94003; 94640; 95816; 97162; 99285; A9560; C1725; C1752; C1769; C9113; J0360; J0885; J1644; J1650; J1815; J1953; J2060; J2250; J2270; J2543; J3010; J3370; J3490; J7050; J7060; P9016; P9021; P9047; Q9967